=== PATIENT | male | born 1965 | race Caucasian/White ===

== ENCOUNTER 2016-11-09 18:23 | Emergency (ER) | payer OTHER ==
[~2016-11-09] VITALS: Ht 193 cm; Wt 171.5 kg
--- NOTE | 2016-11-09 19:21 | ULTRASOUND REPORT ---
EXAMINATION: US TRIPLEX LOWER EXTREMITY, LEFT CLINICAL INFORMATION: Pain and swelling. COMPARISON: None TECHNIQUE: Color-flow triplex imaging with spectral analysis and compression Doppler were performed on the lower extremity. FINDINGS: Respiratory variation and normal compression flow are noted throughout the left lower extremity. The visualized common femoral vein, superficial femoral vein, profunda femoral vein, popliteal vein and tibioperoneal trunk venous segments show no evidence of deep venous thrombosis. There is no Cox's cyst. IMPRESSION: No evidence of deep venous thrombosis involving the lower extremity.
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
[2016-11-09] MEDS ORDERED: PERCOCET 5-3251 EACH PO (20:25)
[2016-11-09 20:32] VITALS: BP 148/72
[2016-11-09] MEDS ORDERED: FUROSEMIDE20 M1 PO (20:32)
[2016-11-09] MEDS ORDERED: WARFARIN SODIUM4 M1 PO (20:32)
[2016-11-09] MEDS ORDERED: METOPROLOL TAR100 M1 PO (20:32)
[2016-11-09] MEDS ORDERED: PANTOPRAZOLE SO40 M1 PO (20:32)
[2016-11-09] MEDS ORDERED: ATORVASTATIN CA20 M1 PO (20:33)
[2016-11-09] MEDS ORDERED: VALSARTAN80 M1 PO (20:33)
[2016-11-09] MEDS ORDERED: VALACYCLOVIR500 M1 PO (20:33)
[2016-11-09] MEDS ORDERED: AMITRIPTYLINE H25 M2 PO (20:33)
[2016-11-09] MEDS ORDERED: TRAZODONE HCL50 M1 PO (20:33)
[2016-11-09] MEDS ORDERED: FENOFIBRATE145 M1 PO (20:33)
== END 2016-11-09 20:34 ==
LOC: ERH 18:23
DX: M54.42 Lumbago with sciatica, left side (principal); Z79.01 Long term (current) use of anticoagulants

== ENCOUNTER 2017-07-20 16:12 | Emergency (ER) | payer OTHER ==
[~2017-07-20] VITALS: Ht 193 cm; Wt 179.6 kg
[~2017-07-20 16:12] MED LIST: AMITRIPTYLINE H25 M2 PO; ATORVASTATIN CA20 M1 PO; FENOFIBRATE145 M1 PO; FUROSEMIDE20 M1 PO; METOPROLOL TAR100 M1 PO; PANTOPRAZOLE SO40 M1 PO; PERCOCET 5-3251 EACH PO; TRAZODONE HCL50 M1 PO; VALACYCLOVIR500 M1 PO; VALSARTAN80 M1 PO; WARFARIN SODIUM4 M1 PO
[2017-07-20 16:17] VITALS: BP 133/76
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
--- NOTE | 2017-07-20 17:59 | RADIOLOGY REPORT ---
EXAMINATION: XR CHEST CLINICAL INFORMATION: Dyspnea. COMPARISON: Chest x-ray 11/29/2010 TECHNIQUE: 2 views of the chest were obtained. FINDINGS: Status post median sternotomy. Heart size is normal. The cardiac and mediastinal contours are normal. There is no pulmonary vascular congestion. The lungs are clear. There is no pleural effusion. IMPRESSION: No acute abnormality of the chest.
--- NOTE | 2017-07-20 18:07 | ULTRASOUND REPORT ---
EXAMINATION: US TRIPLEX OF LOWER EXTREMITIES, BILATERAL CLINICAL INFORMATION: Increased pain in lower extremities. COMPARISON: None TECHNIQUE: Color-flow triplex imaging with spectral analysis and compression Doppler were performed on the lower extremities. FINDINGS: Respiratory variation, normal compression and augmented flow are noted throughout the lower extremities. The visualized common femoral vein, superficial femoral vein, profunda femoral vein, popliteal vein and midcalf peroneal and posterior tibial venous segments show no evidence of deep venous thrombosis. There is no Cox's cyst. IMPRESSION: Normal triplex scan without evidence of deep venous thrombosis involving the lower extremities.
[2017-07-20 18:23] LABS: ABSOLUTE BASOPHIL COUNT 0 /CUMM (0.0-0.2); ABSOLUTE EOSINOPHIL COUNT 0.1 /CUMM (0.0-0.7); ABSOLUTE GRANULOCYTE CT 7.5 /CUMM (1.4-6.5); ABSOLUTE LYMPH COUNT 1.5 /CUMM (1.2-3.4); BASOPHIL % 0.3 % (0.0-2.0); EOSINOPHIL % 1.2 % (0-5); GRANULOCYTE % 73.7 % (42.2-75.2); HEMATOCRIT 40.7 % (42-52); MEAN CORPUSCULAR HGB 28.9 PG (27.0-31.0); MEAN CORPUSCULAR HGB CONC 32.9 G/DL (33.0-37.0); MEAN CORPUSCULAR VOLUME 87.7 FL (80.0-94.0); MEAN PLATELET VOLUME 8.4 FL (7.4-10.4); PLATELET COUNT 384 /CUMM (130-400); RBC DISTRIBUTION WIDTH 13.9 % (11.5-14.5); RED BLOOD CELL CT 4.65 /CUMM (4.70-6.10); WHITE BLOOD CELL COUNT 10.2 /CUMM (4.8-10.8)
[2017-07-20 18:33] LABS: PT 31.7 SEC (9.4-12.5); PTT 52 SEC (25-37)
== END 2017-07-20 20:24 ==
LOC: ERH 16:12
PROVIDERS: Physician Assistant
DX: I87.2 Venous insufficiency (chronic) (peripheral) (principal); R60.0 Localized edema; Z11.4 Encounter for screening for human immunodeficiency virus [HIV]; Z11.3 Encounter for screening for infections with a predominantly sexual mode of transmission
CPT/HCPCS: 71046; 81001; 86803; 87040; 87389; 87491; 87591; 93970